=== PATIENT | male | born 1965 | race Asian ===

== ENCOUNTER 2016-10-21 15:03 | Emergency (ER) | payer OTHER ==
[~2016-10-21] VITALS: Ht 180.3 cm; Wt 90.7 kg
[2016-10-21 15:07] VITALS: BP_SYST 146
[2016-10-21] MEDS ORDERED: MAG-AL HYDROX/SIMETH 30 ML UDC PO ONE (15:30)
[2016-10-21] MEDS ORDERED: PANTOPRAZOLE SODIUM 40 MG TAB PO ONE (15:30)
[2016-10-21 15:52] LABS: LYMPHOCYTES # (AUTO) 1.6 K/uL (1.0-5.5); MEAN CORPUSCULAR HEMOGLOBIN 31 pg (27-31); MEAN CORPUSCULAR HGB CONC 33 % (32-36)
[2016-10-21 16:00] LABS: BASOPHILS # (AUTO) 0.1 K/uL (0.0-0.2); BASOPHILS % (AUTO) 1.8 % (0.0-2.0); EOSINOPHILS % (AUTO) 0.3 % (0.0-4.0); HEMATOCRIT 46.8 % (36-54); HEMOGLOBIN 15.5 g/dL (14.0-18.0); LYMPHOCYTES % (AUTO) 20.3 % (20.5-51.5); MEAN CORPUSCULAR VOLUME 94 fL (79.0-98.0); MONOCYTES # (AUTO) 0.4 K/uL (0.0-1.0); MONOCYTES % (AUTO) 5.3 % (1.7-9.3); NEUTROPHILS # (AUTO) 5.8 K/uL (1.8-7.7); NEUTROPHILS % (AUTO) 72.3 % (40.0-70.0); PLATELET COUNT (AUTO) 216 K/uL (130-430); RED BLOOD CELL COUNT(AUTO) 5.01 MIL/uL (4.2-6.2); RED CELL DISTRIBUTION WIDTH 11.7 % (9.0-15.0); WHITE BLOOD COUNT (AUTO) 7.9 K/uL (4.8-10.8)
[2016-10-21 16:05] LABS: ALANINE AMINOTRANSFERASE 21 U/L (12-78); ANION GAP 12 (5-15); ASPARTATE AMINOTRANSFERASE 17 U/L (10-37); CALCIUM 9.2 mg/dL (8.4-11.0); CHLORIDE 104 mmol/L (98-107); CREATININE 1.25 mg/dL (0.55-1.30); LIPASE 107 U/L (73-393); POTASSIUM 3.7 mmol/L (3.5-5.1); SODIUM SERUM 142 mmol/L (136-145); TOTAL BILIRUBIN 0.6 mg/dL (0.0-1.0); TOTAL PROTEIN, SERUM 7.5 g/dL (6.4-8.3); UREA NITROGEN, BLOOD 21 mg/dL (8-21)
[2016-10-21 16:10] LABS: GFR AFRICAN AMERICAN 78 mL/min (>90); GLUCOSE 110 mg/dL (70-99)
[2016-10-21 16:41] LABS: BILIRUBIN,URINE NEGATIVE (NEGATIVE); BLOOD, URINE NEGATIVE (NEGATIVE); CLARITY/URINE CLEAR (CLEAR); COLOR,URINE YELLOW (YELLOW); GLUCOSE,URINE NEGATIVE (NEGATIVE); KETONES,URINE NEGATIVE (NEGATIVE); LEUKOCYTE ESTERASE ,URINE NEGATIVE (NEGATIVE); NITRITE, URINE NEGATIVE (NEGATIVE); PROTEIN URINE NEGATIVE (NEGATIVE); UROBILINOGEN,URINE 0.2 (0.2-1.0)
== END 2016-10-21 16:30 | disposition left against medical advice (07) ==
LOC: SED 15:03
DX: K21.9 Gastro-esophageal reflux disease without esophagitis (principal); Z53.20 Procedure and treatment not carried out because of patient's decision for unspecified reasons; Z98.890 Other specified postprocedural states
CPT/HCPCS: 36415; 71250-TC; 80053; 81003; 81025; 83690-TC; 84484; 85025; 85610-TC; 85730-TC; 93005; 99285

== ENCOUNTER 2020-03-24 10:42 | Emergency (ER) | payer OTHER, SELFPAY ==
[~2020-03-24] VITALS: Ht 180.3 cm; Wt 102.1 kg
[2020-03-24 10:42] VITALS: BP_SYST 150
--- NOTE | 2020-03-24 10:42 | NUR ---
Patient triaged and placed in waiting room. VSS and patient appears in no acute distress at this time. Accompanied by SELF, awaiting available bed, and MD notified of need for MSE.
--- NOTE | 2020-03-24 10:42 | NUR ---
PT ASKED TO WAIT OUTSIDE IN PT WAITING AREA, DUE TO COVID SYMPTOMS
--- NOTE | 2020-03-24 13:02 | NUR ---
CALLED FOR BED PLACEMENT TO BED #8, UNABLE TO LOCATE PT IN OUT SIDE PT AREA.
--- NOTE | 2020-03-24 13:15 | NUR ---
UNABLE TO LOCATE PT, CALLED FOR BED PLACEMENT
--- NOTE | 2020-03-24 13:17 | NUR ---
CALLED PT AT GIVEN NUMBER AND NO ANSWER. [employer]F [employer]ARTER STATES PT IS IN HIS TRUCK, CHECKED PARKING LOT AND UNABLE TO LOCATE PT.
--- NOTE | 2020-03-24 13:36 | NUR ---
PT FOUND AND PLACED IN BED #8, REPORT GIVEN TO SINCERE
--- NOTE | 2020-03-24 13:45 | NUR ---
Patient came home for evaluation of generalized fatigue, cough, migraine, bodyaches since Tuesday. Patient states he was going to [facility] for COVID-19 testing, but decided to come to the ER for evaluation due to his fatigue.
--- NOTE | 2020-03-24 13:56 | NUR ---
ER at bedside examining patient.
[2020-03-24] MEDS ORDERED: NACL 0.9% 2,000 ML IV ONE (14:15)
[2020-03-24] MEDS ORDERED: ONDANSETRON 4 MG ODT TAB PO ONE (14:15)
[2020-03-24] MEDS ORDERED: KETOROLAC TROMETHAMINE 30 MG VIAL IVP ONE (14:15)
[2020-03-24 15:06] LABS: BASOPHILS % (AUTO) 0.4 % (0.0-2.0); HEMATOCRIT 49.8 % (36-54); HEMOGLOBIN 17.2 g/dL (14.0-18.0); LYMPHOCYTES # (AUTO) 1.1 K/uL (1.0-5.5); MEAN CORPUSCULAR HEMOGLOBIN 33 pg (27-31); MEAN CORPUSCULAR HGB CONC 34 % (32-36); MEAN CORPUSCULAR VOLUME 95 fL (79.0-98.0); MONOCYTES # (AUTO) 0.4 K/uL (0.0-1.0); NEUTROPHILS % (AUTO) 66.6 % (40.0-70.0); PLATELET COUNT (AUTO) 122 K/uL (130-430); RED BLOOD CELL COUNT(AUTO) 5.26 MIL/uL (4.2-6.2); RED CELL DISTRIBUTION WIDTH 12.9 % (9.0-15.0); WHITE BLOOD COUNT (AUTO) 4.5 K/uL (4.8-10.8)
[2020-03-24 15:19] LABS: CALCIUM 8.1 mg/dL (8.4-11.0); CREATININE 1.49 mg/dL (0.55-1.30); POTASSIUM 4.3 mmol/L (3.5-5.1)
[2020-03-24 15:21] LABS: INR 1.1 (0.80-1.20); PROTHROMBIN TIME 10.9 SECS (9.5-12.5)
[2020-03-24 15:24] LABS: ALBUMIN 3.3 g/dL (3.4-4.8); TOTAL BILIRUBIN 0.8 mg/dL (0.0-1.0)
[2020-03-24] MEDS ORDERED: AZITHROMYCIN 500 MG in NS 250 ML IV ONE (16:30)
[2020-03-24] MEDS ORDERED: cefTRIAXone 1 GM IVPB PREMIX 50 ML IV ONE (16:30)
[2020-03-24 16:45] LABS: BILIRUBIN,URINE NEGATIVE (NEGATIVE); BLOOD, URINE NEGATIVE (NEGATIVE); CLARITY/URINE CLEAR (CLEAR); COLOR,URINE YELLOW (YELLOW); GLUCOSE,URINE NEGATIVE (NEGATIVE); KETONES,URINE 1+ (NEGATIVE); LEUKOCYTE ESTERASE ,URINE NEGATIVE (NEGATIVE); NITRITE, URINE NEGATIVE (NEGATIVE); PH,URINE 5.5 (5.0-8.0); PROTEIN URINE TRACE (NEGATIVE); UROBILINOGEN,URINE 0.2 (0.2-1.0)
[2020-03-24 17:09] LABS: INFLUENZA A&B ANTIGEN SCREEN NEGATIVE FOR A & B (NEGATIVE)
[2020-03-24] MEDS ORDERED: AZITHROMYCIN 500 MG/VIAL (ZITHROMAX) IV ONE (17:09)
[2020-03-24 17:11] LABS: BACTERIA,URINE None Seen /HPF (None Seen); MUCUS,URINE None Seen /LPF (None Seen); RBC,URINE NONE SEEN /HPF (0-3)
[2020-03-24 17:12] LABS: WBC,URINE 0-3 /HPF (0-3)
[2020-03-24 18:40] VITALS: BP_SYST 136
--- NOTE | 2020-03-24 18:40 | NUR ---
Patient given written and verbal discharge instructions and verbalizes understanding. ER MD discussed with patient the results and treatment provided. Patient in stable condition. ID arm band removed. IV catheter removed intact and dressing applied, no active bleeding. Rx of Azithromycin, Motrin, Proventil given. Patient educated on pain management and to follow up with PMD. Pain Scale 0/10. Opportunity for questions provided and answered. Medication side effect fact sheet provided.
== END 2020-03-24 18:40 | disposition home or self-care (01) ==
LOC: SED 10:42
DX: U07.1 COVID-19 (principal); J45.909 Unspecified asthma, uncomplicated
CPT/HCPCS: 36415; 36600; 71045; 80053; 81000; 82550; 82728; 82803; 83605; 83615; 83880; 84484; 85025; 85379; 85384; 85610; 85730; 86140; 86710; 86886; 86900; 86901; 87040; 87086; 87426; 93005; 96361; 96365; 96367; 96375; 99285; C9803; J0456; J0696; J1885; J7030; Q0162; U0003